=== PATIENT | female | born 1985 | race Caucasian/White ===

== ENCOUNTER 2016-07-13 08:02 | Inpatient (IN) | payer OTHER ==
[~2016-07-13] VITALS: Ht 167.6 cm; Wt 160.0 kg
[2016-07-13] VITALS (14 sets, daily range): BP systolic 102–154; BP diastolic 55–91; PULSE 97–125; RESP 18–24; TEMP 97.6–98; O2SAT 97–100
[~2016-07-13 08:02] MED LIST: CYCL5TAB PO; NAPR500 OR; Z.0.BCPILL PO
[2016-07-13] MEDS ORDERED: SODIUM CHLORIDE 0.9% FLUSH 5 ML FLUSH IVF PRN ×2 (08:15→14:30)
[2016-07-13] MEDS ORDERED: BIRTH CONTROL PO (08:30)
--- NOTE | 2016-07-13 09:02 | RADRPT ---
EXAM DATE/TIME: 07/13/2016 08:56 [facility] COMPARISON: No previous studies available for comparison. INDICATIONS : Syncope, Short of Breath, Chest Discomfort. MEDICAL HISTORY : None. SURGICAL HISTORY : None. ENCOUNTER: Initial ACUITY: 1 day PAIN SCORE: 2/10 LOCATION: Bilateral chest FINDINGS: A single view of the chest demonstrates the lungs to be symmetrically aerated without evidence of mas s, infiltrate or effusion. The cardiomediastinal contours are unremarkable. Osseous structures are intact. CONCLUSION: No acute disease. Jet King MD on July 13, 2016 at 9:01 Board Certified Radiologist. This report was verified electronically.
--- NOTE | 2016-07-13 09:09 | PD ---
HPI Chief Complaint: Syncope/Near-Syncope Time Seen by Provider: 08:08 Travel History International Travel<30 days: Yes Contact w/Intl Traveler<30days: Yes Name of Country Traveled to: [place] Traveled to known affect area: No History of Present Illness HPI 30-year-old female was brought into the emergency room with history of syncopal episode 2. Patient has not been feeling well this morning and had 2 syncopal episode. 911 was called and when they arrived patient was awake. When they went to resin remover her over to the stretcher she had a second syncopal episode in front of them. No history of seizures and there was no witnessed seizure either. Patient is otherwise a healthy person. She is on control pills and recently travel to [place] one month ago. For past 1 week she's been having some knee pain on the left leg. Upon asking patient says she is been short of breath. She was incontinent during the syncope and looks to be in moderate distress. She was pale and diaphoretic. No history of vomiting or diarrhea. Patient does not think she is since she's been on control pills for past 11 months. Patient is tachycardic in the ER. As per the paramedics she remained tachycardic en route with heart rate in 1 teens. Her blood pressure was within normal limits. Saturation was 94-95% on room air. She did appear tachypneic PFSH Past Medical History Narrative Medical List of her past medical history as reviewed from the nursing note. Diminished Hearing: No ?: Unknown LMP: 06/09/16 Past Surgical History Genitourinary Surgery: Yes (kidney) Social History Alcohol Use: Yes (occ) Tobacco Use: No Substance Use: No Allergies-Medications (Allergen,Severity, Reaction): Coded Allergies: Sulfa (Verified Allergy, Severe, Hives, 07/13/16) Comments List of allergies reviewed from the nursing note. Reported Meds & Prescriptions Reported Meds & Active Scripts Active Reported [ Control ] 1 Tab PO DAILY Narrative Medication List of her home medications reviewed from the nursing note. Review of Systems Except as stated in HPI: all other systems reviewed are Neg Physical Exam Narrative GENERAL: Awake, alert, morbidly obese, moderate to significant distress SKIN: Pale, cool and diaphoretic. Her clothes are wet from being incontinent HEAD: Atraumatic. Normocephalic. EYES: Pupils equal and round. No scleral icterus. No injection or drainage. ENT: No nasal bleeding or discharge. Mucous membranes pink and moist. NECK: Trachea midline. No JVD. CARDIOVASCULAR: Regular rate and rhythm. No murmur appreciated. RESPIRATORY: No accessory muscle use. Clear to auscultation. Breath sounds equal bilaterally. Tachypnea with moderate respiratory distress GASTROINTESTINAL: Abdomen soft, non-tender, nondistended. Hepatic and splenic margins not palpable. MUSCULOSKELETAL: No obvious deformities. No clubbing. No cyanosis. No edema. NEUROLOGICAL: Awake and alert. No obvious cranial nerve deficits. Motor grossly within normal limits. Normal speech. PSYCHIATRIC: Appropriate mood and affect; insight and judgment normal. Data Data Last Documented VS Vital Signs Date Time Temp Pulse Resp B/P Pulse Ox O2 Delivery O2 Flow Rate FiO2 07/13/16 08:29 20 98 Nasal Cannula 2 07/13/16 08:06 97.9 118 111/55 Orders I-Stat Creatinine (07/13/16 08:08) Complete Blood Count With Diff (07/13/16 08:08) Basic Metabolic Panel (Bmp) (07/13/16 08:08) B-Type Natriuretic Peptide (07/13/16 08:08) Act Partial Throm Time (Ptt) (07/13/16 08:08) Prothrombin Time / Inr (Pt) (07/13/16 08:08) Troponin I (07/13/16 08:08) Urinalysis - C+S If Indicated (07/13/16 08:08) Iv Access Insert/Monitor (07/13/16 08:08) Electrocardiogram (07/13/16 08:08) Ecg Monitoring (07/13/16 08:08) Oximetry (07/13/16 08:08) Oxygen Administration (07/13/16 08:08) Chest, Single Ap (07/13/16 08:08) Ct Pulmonary Angiogram (07/13/16 08:08) Sodium Chloride 0.9% Flush (Ns Flush) (07/13/16 08:15) Consult Vascular Access Team (07/13/16 ) Ed Urine Pregnancytest Poc (07/13/16 08:30) Beta Hcg (Quant/Titer) (07/13/16 08:30) Vascular Poc Ultrasound (07/13/16 ) Ondansetron Inj (Zofran Inj) (07/13/16 09:15) Sodium Chlor 0.9% 1000 Ml Inj (Ns 1000 M (07/13/16 09:30) Ct Brain W/O Iv Contrast(Rout) (07/13/16 ) Heparin Inj (Heparin Inj) (07/13/16 10:00) Heparin-D5w Inj (Heparin-D5w Inj) (07/13/16 10:00) Sodium Chlor 0.9% 1000 Ml Inj (Ns 1000 M (07/13/16 10:00) Iohexol 350 Inj (Omnipaque 350 Inj) (07/13/16 09:56) Us Leg Venous Doppler Bilat (07/13/16 ) Echo 2d Comp W/Dopp(Routine) (07/13/16 ) Magnesium (Mg) (07/13/16 10:25) Phosphorus (Po4) (07/13/16 10:25) Fibrinogen (07/13/16 10:25) Admit To Inpatient (07/13/16 ) Code Status (07/13/16 10:26) Vital Signs (Adult) MORALES.Q1H (07/13/16 10:26) Activity Bed Rest (07/13/16 10:26) ^ Elevate Head Of Bed (07/13/16 10:26) Sodium Chloride 0.9% Flush (Ns Flush) (07/13/16 10:30) Sodium Chloride 0.9% Flush (Ns Flush) (07/13/16 21:00) Acetaminophen (Tylenol) (07/13/16 10:30) Acetamin-Hydrocod 325-5 Mg ([place] 5-325 (07/13/16 10:30) Morphine Inj (Morphine Inj) (07/13/16 10:30) Pantoprazole Inj (Protonix Inj) (07/14/16 09:00) Ondansetron Inj (Zofran Inj) (07/13/16 10:30) Docusate Sodium (Colace) (07/13/16 21:00) Sennosides (Senokot) (07/13/16 10:30) Albuterol-Ipratropium Neb (Duoneb Neb) (07/13/16 10:30) Troponin I (07/13/16 15:00) Troponin I (07/13/16 21:00) Magnesium (Mg) (07/14/16 04:00) Lactic Acid (07/14/16 04:00) Hepatic Functional Panel (07/13/16 10:26) Resp Incentive Spirometry (07/13/16 ) Resp Oxygen Roman C Titrat 1-4 L (07/13/16 ) Shear Operator / Telemetry (07/13/16 10:26) ^ Initiate Protocol (07/13/16 10:) ^ Instruction (07/13/16 10:) [facility] Nursing Information (07/13/16 10:30) Chlorhexidine 2% Cloth (Chlorhexidine 2% (07/14/16 04:00) Chlorhexidine 2% Cloth (Chlorhexidine 2% (07/13/16 10:30) Mrsa Pcr Surveillance (07/13/16 10:26) ^ Medication Admin Instruction (07/13/16 10:26) ^ Notify Dr: Other (07/13/16 10:26) Potassium Chlor 40 Meq Premix (Kcl 40 Me (07/13/16 10:30) Potassium Chlor 20 Meq Premix (Kcl 20 Me (07/13/16 10:30) Potassium Cl 40 Meq/30 Ml Liq (Kcl 40 Me (07/13/16 10:30) Potassium Chlor 40 Meq Premix (Kcl 40 Me (07/13/16 10:30) Potassium Chlor 20 Meq Premix (Kcl 20 Me (07/13/16 10:30) Magnesium Sulfate Inj (Magnesium Sulfate (07/13/16 10:30) Magnesium Oxide (Mag-Ox) (07/13/16 10:30) Magnesium Sulfate Inj (Magnesium Sulfate (07/13/16 10:30) Potassium Phosphate (K-Phos) (07/13/16 10:30) Sodium Phosphate Inj (Sodium Phosphate I (07/13/16 10:30) Potassium Cl 40 Meq/30 Ml Liq (Kcl 40 Me (07/13/16 10:30) Potassium Phosphate (K-Phos) (07/13/16 10:30) Potassium Phosphate Inj (Potassium Phosp (07/13/16 10:30) Bedside Glucose MORALES.AC&HS (07/13/16 10:26) ^ Blood Glucose Goal (Criteria (07/13/16 10:26) ^ Hypoglycemia 51 - 69 Mg/Dl (07/13/16 10:26) ^ Hypoglycemia 50 Mg/Dl Or < (07/13/16 10:26) ^ Notify Dr: Other (07/13/16 10:26) Dextrose 50% In [place] (Vial) Inj (D50w (Vi (07/13/16 10:30) Glucagon Inj (Glucagon Inj) (07/13/16 10:30) Insulin Human Reg Supp Scale (Novolin R (07/13/16 11:00) Inpatient Certification (07/13/16 ) Labs Laboratory Tests Test 07/13/16 08:51 White Blood Count 16.1 TH/MM3 Red Blood Count 4.95 MIL/MM3 Hemoglobin 13.8 GM/DL Hematocrit 41.4 % Mean Corpuscular Volume 83.7 FL Mean Corpuscular Hemoglobin 27.8 PG Mean Corpuscular Hemoglobin 33.2 % Concent Red Cell Distribution Width 14.3 % Platelet Count 183 TH/MM3 Mean Platelet Volume 8.7 FL Neutrophils (%) (Auto) 81.0 % Lymphocytes (%) (Auto) 12.8 % Monocytes (%) (Auto) 3.5 % Eosinophils (%) (Auto) 2.4 % Basophils (%) (Auto) 0.3 % Neutrophils # (Auto) 13.0 TH/MM3 Lymphocytes # (Auto) 2.1 TH/MM3 Monocytes # (Auto) 0.6 TH/MM3 Eosinophils # (Auto) 0.4 TH/MM3 Basophils # (Auto) 0.1 TH/MM3 CBC Comment DIFF FINAL Differential Comment Prothrombin Time 11.5 SEC Prothromb Time International 1.0 RATIO Ratio Activated Partial 24.0 SEC Thromboplast Time Fibrinogen 230 mg/dL Sodium Level 140 MEQ/L Potassium Level 3.4 MEQ/L Chloride Level 108 MEQ/L Carbon Dioxide Level 19.8 MEQ/L Anion Gap 12 MEQ/L Blood Urea Nitrogen 9 MG/DL Creatinine 1.03 MG/DL Bedside Creatinine 0.7 MG/DL Estimat Glomerular Filtration 64 ML/MIN Rate Random Glucose 198 MG/DL Calcium Level 8.4 MG/DL Phosphorus Level 2.6 MG/DL Magnesium Level 1.8 MG/DL Troponin I 0.78 NG/ML B-Type Natriuretic Peptide 32 PG/ML Lipase 104 U/L Human Chorionic Gonadotropin, LESS THAN 1 Quant MIU/ML MDM Medical Decision Making Medical Screen Exam Complete: Yes Emergency Medical Condition: Yes Medical Record Reviewed: Yes Interpretation(s) Twelve-lead EKG was reviewed by me. Normal sinus rhythm, normal axis, tachycardia, nonspecific ST-T wave changes, S1 every 3 T3 suggestive off possible PE. Heart rate of 119 bpm. Differential Diagnosis Pulmonary embolism, ectopic , pneumonia, sepsis, intracranial bleed Narrative Course 9:32 AM blood test results are back. Patient has leukocytosis. She is slightly acidotic with bicarbonate of 18. Beta hCG Quant is negative. Chest x- ray was within normal limits. Patient has been taken over to CT scanner and getting her head CT and pulmonary angiogram done. I have ordered 1 L of IV fluid bolus and her. It was challenging to find a peripheral IV including with the ultrasound by me. I ordered a vascular access which they were able to put 1. She definitely will require admission. Patient has the right set up for PE and my suspicion is very high given her clinical presentation, tachycardia, tachypnea etc. I spoke with her parents regarding this who were in the room and they agreed. Patient will require admission regardless. 9:46 AM patient has bilateral large PEs. I'll start her on heparin bolus and drip. I would recommend her admission into the ICU for now. Patient does appear to be hemodynamically guarded. Awaiting for the locator to call back. I was also called just now regarding patient's troponin is a critical value which was 0.78. In my opinion that is from the large PE straining the heart. Critical Care Narrative Aggregate critical care time was 60 minutes. Time to perform other separately billable procedures was not included in the critical care time. My time did not include minutes spent treating any other patients simultaneously or on activities that did not directly contribute to the patient's treatment. The services I provided to this patient were to treat and/or prevent clinically significant deterioration that could result in: Large multiple bilateral PE, respiratory distress, elevated troponin, hemodynamically guarded, fluid resuscitation, heparin bolus and drip I provided critical care services requiring my management, as noted below: Chart data review, documentation time, medication orders and management, vital sign assessments/reviewing monitor data, ordering and reviewing lab tests, ordering and interpreting/reviewing x-rays and diagnostic studies, care of the patient and discussion of the patient with the admitting physicians. Procedures EKG Prior to Arrival: No Physician Communication Physician Communication Dr. Leiva Diagnosis Primary Impression: Pulmonary embolism Qualified Code: I26.99 - Other acute pulmonary embolism without acute cor pulmonale Additional Impressions: Syncope Qualified Code: R55 - Syncope, unspecified syncope type Respiratory distress Metabolic acidosis Elevated troponin I level Admitting Information Admitting Physician Requests: it Flakito Christopher MD Jul 13, 2016 09:09
[2016-07-13 09:11] LABS: BASOPHIL # 0.1 TH/MM3 (0-0.2); BASOPHIL % 0.3 % (0.0-2.0); EOSINOPHIL # 0.4 TH/MM3 (0-0.4); EOSINOPHIL % 2.4 % (0.0-4.0); HEMATOCRIT 41.4 % (35.0-46.0); HEMO FLAGS DIFF FINAL; LYMPH % 12.8 % (9.0-44.0); LYMPHOCYTE # 2.1 TH/MM3 (1.0-4.8); MEAN CELL VOLUME 83.7 FL (80.0-100.0); MEAN CORPUSCULAR HEMOGLOBIN 27.8 PG (27.0-34.0); MEAN CORPUSCULAR HGB CONC 33.2 % (32.0-36.0); MONO % 3.5 % (0.0-8.0); PLATELET COUNT 183 TH/MM3 (150-450); RED BLOOD COUNT 4.95 MIL/MM3 (4.00-5.30); RED CELL DISTRIBUTION WIDTH 14.3 % (11.6-17.2); WHITE BLOOD COUNT 16.1 TH/MM3 (4.0-11.0)
[2016-07-13 09:15] LABS: PROTHROMBIN TIME - PATIENT 11.5 SEC (9.8-11.6)
[2016-07-13] MEDS ORDERED: ONDANSETRON HCL 4 MG/2 ML VIAL IV PUSH ONE (09:15)
[2016-07-13 09:21] LABS: BICARBONATE 19.8 MEQ/L (21.0-32.0); POTASSIUM 3.4 MEQ/L (3.5-5.1)
[2016-07-13 09:26] LABS: BETA HCG QUANT LESS THAN 1 MIU/ML (0-5)
[2016-07-13] MEDS ORDERED: SODIUM CHLOR 0.9% 1000 ML INJ 1,000 ML IV ONE ×2 (09:30→10:00)
[2016-07-13] MEDS ORDERED: IOHEXOL 350 MG/ML 10 ML VIAL (for RAD DIAG) IV ONE (09:56)
--- NOTE | 2016-07-13 09:56 | RADRPT ---
EXAM DATE/TIME: 07/13/2016 09:29 [facility] COMPARISON: No previous studies available for comparison. INDICATIONS : Syncopal episode. RADIATION DOSE: 56.35 CTDIvol (mGy) MEDICAL HISTORY : None SURGICAL HISTORY : None. ENCOUNTER: Initial ACUITY: 1 day PAIN SCALE: 5/10 LOCATION: Bilateral chest TECHNIQUE: Multiple contiguous axial images were obtained of the head. Using automated exposure control and adj ustment of the mA and/or kV according to patient size, radiation dose was kept as low as reasonably a chievable to obtain optimal diagnostic quality images. FINDINGS: CEREBRUM: The ventricles are normal for age. No evidence of midline shift, mass lesion, hemorrhage or acute in farction. No extra-axial fluid collections are seen. POSTERIOR FOSSA: The cerebellum and brainstem are intact. The 4th ventricle is midline. The cerebellopontine angle i s unremarkable. EXTRACRANIAL: The visualized portion of the orbits is intact. SKULL: The calvaria is intact. No evidence of skull fracture. CONCLUSION: No acute intracranial disease. Jet King MD on July 13, 2016 at 9:53 Board Certified Radiologist. This report was verified electronically.
--- NOTE | 2016-07-13 09:58 | RADRPT ---
EXAM DATE/TIME: 07/13/2016 09:25 [facility] COMPARISON: No previous studies available for comparison. INDICATIONS : Shortness of breath and syncopal episode; evalute for embolism. IV CONTRAST: 75 cc Omnipaque 350 (iohexol) IV RADIATION DOSE: 23.49 CTDIvol (mGy) MEDICAL HISTORY : None SURGICAL HISTORY : None. ENCOUNTER: Initial ACUITY: 1 day PAIN SCALE: 5/10 LOCATION: Bilateral chest TECHNIQUE: Volumetric scanning of the chest was performed using a pulmonary embolism protocol MIP images were re constructed. Using automated exposure control and adjustment of the mA and/or kV according to patien t size, radiation dose was kept as low as reasonably achievable to obtain optimal diagnostic quality images. FINDINGS: PULMONARY ARTERIES: There are filling defects seen throughout the upper lobe lower lobe and right middle lobe images. The re is also filling defects in the lingular branches. This is consistent with multifocal extensive zoe ateral pulmonary emboli. Pulmonary arteries are normal in size. LUNGS: There is no consolidation or pneumothorax . No concerning pulmonary nodule is visualized. PLEURAE: There is no pleural thickening or pleural effusion. MEDIASTINUM: There is good visualization of the great vessels of the middle mediastinum. No evidence of mediastin al or hilar adenopathy/mass. MUSCULOSKELETAL: Within normal limits for patient age. MISCELLANEOUS: The visualized upper abdominal organs demonstrate no acute abnormality. CONCLUSION: Extensive bilateral pulmonary emboli. Jet King MD on July 13, 2016 at 9:55 Board Certified Radiologist. This report was verified electronically.
[2016-07-13] MEDS ORDERED: HEPARIN SODIUM - IV 10,000 UNITS/10 ML VIAL IV ONE (10:00)
[2016-07-13] MEDS ORDERED: HEPARIN-D5W INJ 250 ML IV SCH ×4 (10:00→17:15)
[2016-07-13] MEDS ORDERED: RESP: ALBUTEROL 2.5 MG/IPRATROPIUM 0.5 MG NEB (PRN) INH (10:30)
[2016-07-13] MEDS ORDERED: POTASSIUM PHOSPHATE MONOBASIC 500 MG TAB PO/TUBE PRN (10:30)
[2016-07-13] MEDS ORDERED: POTASSIUM PHOSPHATE INJ 30 MMOL in SODIUM CHLOR 0.9% 250 ML INJ 250 ML IV PRN (10:30)
[2016-07-13] MEDS ORDERED: SENNOSIDES 8.6 MG TAB PO PRN (10:30)
[2016-07-13] MEDS ORDERED: SODIUM PHOSPHATE INJ 30 MMOL in SODIUM CHLOR 0.9% 250 ML INJ 240 ML IV PRN (10:30)
[2016-07-13] MEDS ORDERED: MAGNESIUM OXIDE 400 MG TAB PO PRN (10:30)
[2016-07-13] MEDS ORDERED: POTASSIUM CHLOR 40 MEQ PREMIX 100 ML IV PRN ×2 (10:30)
[2016-07-13] MEDS ORDERED: MAGNESIUM SULFATE INJ 4 GM in SODIUM CHLORIDE 0.9% INJ 92 ML IV PRN (10:30)
[2016-07-13] MEDS ORDERED: GLUCAGON 1 MG/ML VIAL OTHER PRN (10:30)
[2016-07-13] MEDS ORDERED: SODIUM CHLORIDE 0.9% FLUSH 5 ML FLUSH IV FLUSH PRN (10:30)
[2016-07-13] MEDS ORDERED: POTASSIUM PHOSPHATE MONOBASIC 500 MG TAB PO PRN (10:30)
[2016-07-13] MEDS ORDERED: MISCELLANEOUS NURSING INFORMATION XX SCH (10:30)
[2016-07-13] MEDS ORDERED: POTASSIUM CL 40 MEQ/30 ML LIQ UDC PO/TUBE PRN ×2 (10:30)
[2016-07-13] MEDS ORDERED: DEXTROSE 50% IN WATER 50 ML VIAL(D50) IV PUSH PRN (10:30)
[2016-07-13] MEDS ORDERED: MORPHINE SULFATE 4 MG/ML INJ IV PRN (10:30)
[2016-07-13] MEDS ORDERED: MAGNESIUM SULFATE INJ 2 GM in SODIUM CHLORIDE 0.9% INJ 96 ML IV PRN (10:30)
[2016-07-13] MEDS ORDERED: POTASSIUM CHLOR 20 MEQ PREMIX 100 ML IV PRN ×2 (10:30)
[2016-07-13] MEDS ORDERED: CHLORHEXIDINE GLUCONATE 2 % 1 PACK (2 CLOTHS) TOP PRN (10:30)
[2016-07-13] MEDS ORDERED: ACETAMINOPHEN 325 MG TAB PO PRN (10:30)
[2016-07-13] MEDS: INSULIN NovoLIN REGULAR SUPPLEMENTAL SCALE SQ SCH ×3 (11:00→20:12)
--- NOTE | 2016-07-13 11:04 | HHI.HP ---
[facility] Service Critical Care Medicine Primary Care Physician Non-Staff Admission Diagnosis Bilateral pulmonary embolism Diagnosis: (1) Elevated troponin I level Diagnosis: Principal (2) Syncope Diagnosis: Principal (3) Respiratory distress Diagnosis: Principal (4) Leukocytosis Diagnosis: Principal (5) Hypopotassemia Diagnosis: Principal (6) SIRS without infection with organ dysfunction Diagnosis: Principal (7) Morbid obesity with BMI of 50.0-59.9, adult Diagnosis: Principal (8) Congenital abnormality of ureter Diagnosis: Principal (9) Acute pulmonary embolism Diagnosis: Principal Chief Complaint: Shortness of breath/syncope 2 Travel History International Travel<30 Days: Yes Contact w/Intl Traveler <30 Da: Yes Name of Country Traveled to: [place] Traveled to Known Affected Are: No Sepsis Criteria SIRS Criteria (2 or more): Heart rate over 90, WBC > 81090, < 4000 or > 10% bands Criteria Outcome: Meets SIRS criteria History of Present Illness 30-year-old male. Date of admission 07/13/2016. Past medical history includes morbid obesity and congenital ureteral abnormality. She is on contro; pills. [facility] with the following history. She recently traveled to the [place] to return approximately one month ago. 2 weeks ago, patient noticed pain behind her right calf that "went away". Today, patient had a syncopal episode. She did not strike her head. 911 was called and when they arrive to patient was awakened they went over to the stretcher and she had a second syncopal episode in front of them. She was pale and diaphoretic. Sinus tachycardiac and otherwise blood pressure within normal limits EKG revealed sinus tachycardia with an S1, Q3 T3 medication. Chest x-ray revealed no acute findings. CT head negative for acute cranial findings. CTA chest revealed extensive bilateral pulmonary embolism without saddle emboli. Patient was started on heparin drip by the ED staff. She has leukocytosis 16, 000, potassium 3.4. Blood sugar 198. Urine pending. Troponin 0.78. Interim: Patient appears more comfortable/ in no acute distress however in sinus tachycardia. Review of Systems Constitutional: COMPLAINS OF: Fatigue, Dizziness, DENIES: Fever, Weight gain, Weight loss Endocrine: DENIES: Abnorml menstrual pattern Eyes: DENIES: Blurred vision, Double Vision Ears, nose, mouth, throat: DENIES: Tinnitus, Epistaxis Respiratory: COMPLAINS OF: Shortness of breath, DENIES: Apneas, Sputum production Cardiovascular: COMPLAINS OF: Chest pain, Palpitations, Syncope, DENIES: Dyspnea on Exertion, Lower Extremity Edema, Claudication Gastrointestinal: DENIES: Abdominal pain Genitourinary: DENIES: Urinary frequency, Urinary incontinence Musculoskeletal: DENIES: Joint pain Integumentary: DENIES: Pruritus, Rash Hematologic/lymphatic: DENIES: Bruising Immunologic/allergic: DENIES: Eczema, Urticaria Neurologic: DENIES: Headache Psychiatric: COMPLAINS OF: Anxiety, DENIES: Confusion, Mood changes Past Family Social History Allergies: Coded Allergies: Sulfa (Verified Allergy, Severe, Hives, 07/13/16) Past Medical History Morbid obesity Congenital ureter abnormality Past Surgical History IV J Reported Medications None Active Ordered Medications Reviewed in EMR Family History Mother with History of blood clots after surgery. Negative hypercoagulable workup with Dr. Kraus Father history of ablation Social History Social alcohol. Denies nicotine or IV drug use. Physical Exam Vital Signs Vital Signs Date Time Temp Pulse Resp B/P Pulse Ox O2 Delivery O2 Flow Rate FiO2 07/13/16 08:29 20 98 Nasal Cannula 2 07/13/16 08:29 98 Nasal Cannula 2 07/13/16 08:06 97.9 118 20 111/55 97 Physical Exam GENERAL: 30-year-old female, resting in bed in no acute distress nasal cannula SKIN: Warm and dry. HEAD: Atraumatic. Normocephalic. EYES: Pupils equal and round about 5 mm bilaterally and minimally reactive. No scleral icterus. No injection or drainage. ENT: No nasal bleeding or discharge. Mucous membranes pink and moist. NECK: Trachea midline. No JVD. No carotid bruit. CARDIOVASCULAR: Tachycardic, RR. S1, S2. No S4. Without murmur RESPIRATORY: No accessory muscle use. Clear to auscultation. Breath sounds equal bilaterally. GASTROINTESTINAL: Abdomen soft, non-tender, obese. Hypoactive bowel sounds are appreciated. MUSCULOSKELETAL: Extremities with nonpitting peripheral edema. Tattoo on left dorsal aspect of foot. Positive Homans sign right calf NEUROLOGICAL: Awake and alert. No obvious cranial nerve deficits. Motor grossly within normal limits. Five out of 5 muscle strength in the arms and legs. Normal speech. PSYCHIATRIC: Appropriate mood and affect; insight and judgment normal. Laboratory Laboratory Tests Test 07/13/16 08:51 White Blood Count 16.1 Red Blood Count 4.95 Hemoglobin 13.8 Hematocrit 41.4 Mean Corpuscular Volume 83.7 Mean Corpuscular Hemoglobin 27.8 Mean Corpuscular Hemoglobin 33.2 Concent Red Cell Distribution Width 14.3 Platelet Count 183 Mean Platelet Volume 8.7 Neutrophils (%) (Auto) 81.0 Lymphocytes (%) (Auto) 12.8 Monocytes (%) (Auto) 3.5 Eosinophils (%) (Auto) 2.4 Basophils (%) (Auto) 0.3 Neutrophils # (Auto) 13.0 Lymphocytes # (Auto) 2.1 Monocytes # (Auto) 0.6 Eosinophils # (Auto) 0.4 Basophils # (Auto) 0.1 CBC Comment DIFF FINAL Differential Comment Prothrombin Time 11.5 Prothromb Time International 1.0 Ratio Activated Partial 24.0 Thromboplast Time Sodium Level 140 Potassium Level 3.4 Chloride Level 108 Carbon Dioxide Level 19.8 Anion Gap 12 Blood Urea Nitrogen 9 Creatinine 1.03 Bedside Creatinine 0.7 Estimat Glomerular Filtration 64 Rate Random Glucose 198 Calcium Level 8.4 Troponin I 0.78 B-Type Natriuretic Peptide 32 Human Chorionic Gonadotropin, LESS THAN 1 Quant Result Diagram: 07/13/16 0851 07/13/16 0851 Imaging Last Impressions Chest X-Ray 07/13/16 0808 Signed Impressions: Service Date/Time: Wednesday, July 13, 2016 08:56 - CONCLUSION: No acute disease. Jet King MD CT Angiography 07/13/16 0808 Signed Impressions: Service Date/Time: Wednesday, July 13, 2016 09:25 - CONCLUSION: Extensive bilateral pulmonary emboli. Jet King MD Head CT 07/13/16 0000 Signed Impressions: Service Date/Time: Wednesday, July 13, 2016 09:29 - CONCLUSION: No acute intracranial disease. Jet King MD Assessment and Plan Assessment and Plan Neuro/Psych: Syncope - likely cardiogenic secondary to pulmonary embolism Acetaminophen for fever [place]/morphine for pain management Carotid Dopplers ordered for completeness of workup CV: Sinus tachycardia Elevated troponin - likely secondary to sinus tachycardia/demand ischemia from PE Likely secondary to pulmonary embolism. Will not treat the present time. See bolus of 1 Liter normal saline ED. Currently on normal saline at 84 cc an hour. Currently not requiring vasopressors and/or antihypertensives. Serial troponins. Check lipid panel in a.m. Resp: Bilateral submassive pulmonary embolism CT angiogram 07/13 revealed bilateral pulmonary embolism involving all lobes. No saddle pulmonary emboli. EKG revealed S1 Q 3 T3 motif with sinus tachycardia Heparin drip initiated. PE protocol 2-D echocardiogram/bilateral lobes and ultrasounds pending Currently hemodynamic stable. With sinus tachycardia if 2-D echocardiogram reveals RV strain will contact IR for possible alteplase/catheter directed GI: ADA diet Protonix for GI prophylaxis Colace/as needed Senokot for bowel regimen : History of congenital ureteral abnormality Keith if indicated for accurate I's nose and critical patient Endo: Hyper-glycemia - metabolic syndrome Sliding-scale insulin with Accu-Cheks before meals/at bedtime maintain euglycemia. Low regimen. Check hemoglobin and see Renal: Creatinine currently within normal limits Accurate I/Os Monitor urine output Heme: Leukocytosis Likely leukemoid type reaction. See below for infectious workup Follow-up CBC/coags in AM. Monitor trends Hypercoagulable workup ordered. Note that protein C/S and anti-thrombin 3 will be falsely low due to ongoing thrombosis. It may also identify reactive non-causative antiphospholipid antibodies ID: Monitor for infection. UA ordered Chest x-ray revealed no acute processes FEN: Hypokalemia Replace per ICU electrolyte protocol. Recheck in a.m. 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 Hcg 1 Access - Utilize peripheral IV. Place second peripheral IV with vascular access. Central line if indicated Prophylaxis - GI - Protonix - DVT - heparin drip Critical Care: The total critical care time was 55 minutes. Time to perform other separately billable procedures was not included in the critical care time. Echocardiogram reviewed. Moderate to severe RV dilation with Glez sign. Elevated pulmonary pressures. Patient tachycardic at 122 with systolic blood pressure of 102. Discussed with Dr. Ly/IR regarding possible intervention on his behalf. Due to the bilateral nature the pulmonary embolism , he recommended Place central line and start alteplase at 2 mg an hour 4 hours followed by 1 mg an hour for 20 hours. Heparin drip at 500 units an hour. Every 6 hours labs including CBC, PTT and fibrinogen. See orders. Afterwards. Start heparin drip per PE protocol dosage. Dr. Ly willing to come in if patient emergently needs intervention. Code Status Full code Discussed Condition With Dr. Christopher. Patient. Mother and father. Care plan discussed all questions answered. Problem Qualifiers (1) Syncope: Qualified Code: R55 - Syncope, unspecified syncope type (2) Leukocytosis: Qualified Code: D72.829 - Leukocytosis, unspecified type (3) Acute pulmonary embolism: Qualified Code: I26.09 - Other acute pulmonary embolism with acute cor pulmonale Mike Leiva MD Jul 13, 2016 11:04
[2016-07-13] MEDS ORDERED: METOCLOPRAMIDE HCL 10 MG/2 ML VIAL IV PUSH PRN (11:45)
[2016-07-13] MEDS ORDERED: PROMETHAZINE HCL 25 MG TAB PO PRN (11:45)
[2016-07-13 12:14] LABS: MAGNESIUM 1.8 MG/DL (1.5-2.5)
--- NOTE | 2016-07-13 12:33 | EC ---
Study Study Date:07/13/2016 STUDY CONCLUSIONS SUMMARY - Left ventricle: The cavity size was normal. Wall thickness was normal. Systolic function was normal. The estimated ejection fraction was in the range of 55% to 60%. Wall motion was normal; there were no regional wall motion abnormalities. - Ventricular septum: The contour showed systolic flattening. These changes are consistent with RV pressure overload. - Right ventricle: The cavity size was moderately dilated. Wall thickness was normal. Systolic function was moderately to severely reduced. Apical wall motion was spared; Glez's sign, consistent with pulmonary embolus. - Tricuspid valve: Mild regurgitation. - Pulmonary arteries: Systolic pressure was severely increased. PA peak pressure: 70mm Hg (S). If LV function is below 40, please consider prescribing an ACEI or ARB or document rationale for non-use. PROCEDURE DATA STUDY STATUS: Elective. Procedure: Transthoracic echocardiography. Image quality was good. Scanning was performed from the parasternal, apical, and subcostal acoustic windows. Study completion: The patient tolerated the procedure well. Transthoracic echocardiography. M-mode, complete 2D, complete spectral Doppler, and color Doppler. Patient status: Inpatient. CARDIAC ANATOMY LEFT VENTRICLE: The cavity size was normal. Wall thickness was normal. Systolic function was normal. The estimated ejection fraction was in the range of 55% to 60%. Wall motion was normal; there were no regional wall motion abnormalities. AORTIC VALVE: Trileaflet; normal thickness leaflets. Doppler: Transvalvular velocity was within the normal range. There was no stenosis. No regurgitation. AORTA: Aortic root: The aortic root was normal in size. MITRAL VALVE: Structurally normal valve. Doppler: Transvalvular velocity was within the normal range. There was no evidence for stenosis. No regurgitation. LEFT ATRIUM: The atrium was normal in size. RIGHT VENTRICLE: The cavity size was moderately dilated. Wall thickness was normal. Systolic function was moderately to severely reduced. VENTRICULAR SEPTUM: The contour showed systolic flattening. These changes are consistent with RV pressure overload. PULMONIC VALVE: Doppler: Transvalvular velocity was within the normal range. There was no evidence for stenosis. No regurgitation. TRICUSPID VALVE: Structurally normal valve. Doppler: Transvalvular velocity was within the normal range. Mild regurgitation. PULMONARY ARTERY: The main pulmonary artery was normal-sized. Systolic pressure was severely increased. RIGHT ATRIUM: The atrium was normal in size. PERICARDIUM: There was no pericardial effusion. SYSTEMIC VEINS: Inferior vena cava: The vessel was normal in size. BASIC MEASUREMENTS ADULT Normal Left ventricle LV internal dimension, ED, chordal level, *41.4 mm 43-52 PLAX LV internal dimension, ES, chordal level, 30.6 mm 23-38 PLAX Fractional shortening, chordal level, PLAX *26 % >29 LV posterior wall thickness, ED 7.8 mm IVS/LVPW ratio, ED *1.36 <1.3 Ventricular septum Septal thickness, ED 10.6 mm Aortic valve Leaflet separation 19 mm 15-26 Left atrium Anterior-posterior dimension 31 mm Right ventricle RV internal dimension, ED, PLAX 37 mm 19-38 BASIC MEASUREMENTS ADULT Normal Aortic valve Leaflet separation 19 mm 15-26 Aorta Root diameter, ED 31 mm 20-37 Left atrium Anterior-posterior dimension, ES 31 mm 19-40 LA/aortic root ratio 1 DOPPLER MEASUREMENTS ADULT Normal Main pulmonary artery Pressure, S *70 mm Hg =30 Mitral valve Peak E-wave velocity 59.3 cm/s Peak A-wave velocity 59.8 cm/s Peak E/A ratio 1 Tricuspid valve Regurgitant peak velocity 327 cm/s Peak RV-RA gradient, S 43 mm Hg Maximal regurgitant velocity 327 cm/s LEGEND: Mean values are shown as u=mean value. Asterisk (*) victoria values outside specified normal range. Prepared and signed by Yan Lake [id number]
--- NOTE | 2016-07-13 13:01 | RADRPT ---
EXAM DATE/TIME: 07/13/2016 11:44 [facility] COMPARISON: No previous studies available for comparison. INDICATIONS : Pulmonary emboli, leg pain. MEDICAL HISTORY : Syncope. Shortness of breath. Leg pain. SURGICAL HISTORY : Kidney surgery. ENCOUNTER: Initial ACUITY: 1 day PAIN SCORE: 4/10 LOCATION: Bilateral legs. TECHNIQUE: Venous ultrasound of the left and right leg was performed from the inguinal ligament to the proximal calf. Real-time, color Doppler and spectral tracing, compression and augmentation techniques were us ed. FINDINGS: RIGHT LEG: There is nonocclusive thrombus in the right superficial femoral vein and posterior tibial vein. Commo n femoral vein and popliteal veins patent. LEFT LEG: There is nonocclusive thrombus within the superficial femoral vein and posterior tibial veins. Commo n femoral vein and popliteal veins are patent. CONCLUSION: Nonocclusive thrombosis in both legs. Jet King MD on July 13, 2016 at 12:57 Board Certified Radiologist. This report was verified electronically.
--- NOTE | 2016-07-13 13:03 | EKG ---
Date Performed: 07/13/2016 Time Performed: 08:32:58 PTAGE: 30 years EKG: SINUS TACHYCARDIA NONSPECIFIC ST & T-WAVE ABNORMALITY ABNORMAL ECG NO PREVIOUS TRACING DOCTOR: Yan Lake Interpretating Date/Time 07/13/2016 12:59:11
[2016-07-13] MEDS: SODIUM CHLOR 0.9% 1000 ML INJ 1,000 ML IV SCH ×2 (13:06→19:49)
--- NOTE | 2016-07-13 13:13 | RADRPT ---
EXAM DATE/TIME: 07/13/2016 12:16 [facility] COMPARISON: No previous studies available for comparison. INDICATIONS : Syncope. MEDICAL HISTORY : Syncope. Shortness of breath. Leg pain. SURGICAL HISTORY : Kidney surgery. ENCOUNTER: Initial ACUITY: 1 day PAIN SCORE: 0/10 LOCATION: Bilateral neck PEAK SYSTOLIC VELOCITIES (cm/sec): ICA/CCA RATIO: Right: 1.1 Left: 0.7 ICA: Right: 111 Left: 81 CCA: Right: 98 Left: 112 ECA: Right: 81 Left: 103 VERTEBRAL: Right: 72 antegrade Left: 72 antegrade Elevated flow velocities and ICA/CCA ratios have been found to correlate with increased degrees of vessel stenosis, calculated as percentage of diameter relative to a normal segment of distal ICA/CCA FINDINGS: RIGHT CAROTID: No significant stenosis is visualized. The waveforms are within normal limits. LEFT CAROTID: No significant stenosis is visualized. The waveforms are within normal limits. VERTEBRAL ARTERIES: Antegrade flow is seen in both vertebral arteries. MISCELLANEOUS: None. CONCLUSION: No hemodynamically significant stenosis in either carotid artery. Jet King MD on July 13, 2016 at 13:11 Board Certified Radiologist. This report was verified electronically.
[2016-07-13] MEDS ORDERED: HALOPERIDOL LACTATE 5 MG/ML AMP ONE (13:54)
[2016-07-13] MEDS ORDERED: CATHFLO ACTIVASE INJ 10 MG in SODIUM CHLORID 0.9% 500 ML INJ 500 ML IV SCH ×6 (14:00→17:15)
[2016-07-13] MEDS: SODIUM CHLORIDE 0.9% FLUSH 5 ML FLUSH IVF SCH (14:30)
--- NOTE | 2016-07-13 14:32 | PD.PROCEDR ---
Central Line Procedure REASON FOR PROCEDURE Central venous access PROCEDURE PERFORMED Central line placement: Left IJ CVL CONSENT Informed consent for procedure was obtained. The risks and benefits of the procedure were discussed to include but limited to bleeding, clot formation, infection, and even . ANESTHESIA Local injection of 1% Lidocaine DESCRIPTION OF THE PROCEDURE The patient was placed in supine, mild Trendelenburg position. The area was exposed and cleansed with ChloraPrep, times two. Large sterile drape was used to cover the patient, with the site exposed, under sterile conditions including cap, face mask, sterile gown, and sterile gloves. On single attempt, the introducer needle was inserted with negative pressure in syringe and venous flash was obtained. The guide wire was then advanced without any restriction and the needle was removed. The dilator was used without any complications. Using Seldinger technique the triple-lumen catheter was advanced over the guide wire to a depth of 20 centimeters. The guide wire was removed. All ports were aspirated with dark venous blood return and flushed easily with sterile saline. All ports were capped. Antibiotic disc was placed around central line at puncture site. The central line was secured to the skin with two interrupted 2.0 silk sutures. The area was bandaged with sterile see-through central line bandage. RADIOLOGICAL DATA Ultrasound guidance was used to locate left internal jugular vein. Doppler/ color flow was used to confirm venous flow. COMPLICATIONS: No apparent complications ESTIMATED BLOOD LOSS: Less than 1 cc. Mike Leiva MD Jul 13, 2016 14:32
[2016-07-13] MEDS ORDERED: PROMETHAZINE INJ 25 MG/ML VIAL IV-CENTRAL PRN (14:45)
--- NOTE | 2016-07-13 14:57 | RADRPT ---
EXAM DATE/TIME: 07/13/2016 14:41 [facility] COMPARISON: No previous studies available for comparison. INDICATIONS : Central Line Placement, Short of Breath, Chest Discomfort. MEDICAL HISTORY : None. SURGICAL HISTORY : None. ENCOUNTER: Initial ACUITY: 1 day PAIN SCORE: 2/10 LOCATION: Bilateral chest FINDINGS: A single view of the chest demonstrates the lungs to be symmetrically aerated without evidence of mas s, infiltrate or effusion. The cardiomediastinal contours are unremarkable. Left jugular central li ne with tip in the cavoatrial junction. Osseous structures are intact. CONCLUSION: No acute disease. Adequate placement of left jugular central line. No pneumothorax Jet King MD on July 13, 2016 at 14:55 Board Certified Radiologist. This report was verified electronically.
[2016-07-13] MEDS ORDERED: HALOPERIDOL LACTATE 5 MG/ML AMP IV PUSH ONE (16:00)
[2016-07-13 17:04] LABS: BACTERIA, URINE OCC /hpf; BLOOD, URINE MOD (NEG); GLUCOSE,URINE NEG (NEG); KETONE, URINE TRACE mg/dL (NEG); NITRITE,URINE NEG (NEG); SQUAMOUS EPITHELIAL CELL URINE 2 /hpf (0-5); URINE COLOR YELLOW (YELLW/STRAW)
[2016-07-13 17:11] LABS: COMMENT (UR) CULTURE INDICATED; CULTURE IF INDICATED CULTURE INDICATED
[2016-07-13] MEDS ORDERED: LABETALOL HCL 100 MG/20 ML VIAL IV PUSH PRN (18:15)
[2016-07-13] MEDS ORDERED: NITROGLYCERIN 2% OINT 1 GM PACKET TOPICAL PRN (18:15)
[2016-07-13] MEDS ORDERED: hydrALAZINE HCL 20 MG/ML VIAL IV PUSH PRN (18:15)
[2016-07-13] MEDS: ONDANSETRON HCL 4 MG/2 ML VIAL IV PRN (19:49)
[2016-07-13] MEDS: SODIUM CHLORIDE 0.9% FLUSH 5 ML FLUSH IV FLUSH SCH (19:50)
[2016-07-13] MEDS: DOCUSATE SODIUM 100 MG CAP PO SCH (19:50)
[2016-07-13] MEDS: CATHFLO ACTIVASE INJ 10 MG in SODIUM CHLORID 0.9% 500 ML INJ 500 ML IV SCH (19:54)
[2016-07-13 20:16] LABS: AUTOMATED NEUTROPHIL # 7.7 TH/MM3 (1.8-7.7); BASOPHIL % 0.3 % (0.0-2.0); HEMATOCRIT 39.9 % (35.0-46.0); HEMO FLAGS DIFF FINAL; MEAN CELL VOLUME 83.8 FL (80.0-100.0); MEAN CORPUSCULAR HEMOGLOBIN 27.9 PG (27.0-34.0); MEAN CORPUSCULAR HGB CONC 33.3 % (32.0-36.0); MONO % 5.9 % (0.0-8.0); NEUT % 82.8 % (16.0-70.0); PLATELET COUNT 172 TH/MM3 (150-450); RED BLOOD COUNT 4.76 MIL/MM3 (4.00-5.30); RED CELL DISTRIBUTION WIDTH 14.2 % (11.6-17.2); WHITE BLOOD COUNT 9.4 TH/MM3 (4.0-11.0)
[2016-07-13] MEDS: ACETAMINOPHEN/HYDROcodone 325 MG/5 MG TAB PO PRN (20:34)
[2016-07-13 20:46] LABS: APTT (PATIENT) 25.9 SEC (24.3-30.1)
[2016-07-14] VITALS (14 sets, daily range): BP systolic 109–177; BP diastolic 64–86; PULSE 77–92; RESP 16–22; TEMP 97.9–98.8; O2SAT 96–99
[2016-07-14] MEDS: ONDANSETRON HCL 4 MG/2 ML VIAL IV PRN (00:41)
[2016-07-14] MEDS: ACETAMINOPHEN/HYDROcodone 325 MG/5 MG TAB PO PRN ×5 (00:41→19:06)
[2016-07-14 01:59] LABS: BASOPHIL % 0.1 % (0.0-2.0); EOSINOPHIL % 0.1 % (0.0-4.0); HEMATOCRIT 37.3 % (35.0-46.0); HEMO FLAGS DIFF FINAL; LYMPH % 18.3 % (9.0-44.0); LYMPHOCYTE # 1.8 TH/MM3 (1.0-4.8); MEAN CORPUSCULAR HEMOGLOBIN 28.1 PG (27.0-34.0); MEAN CORPUSCULAR HGB CONC 33.5 % (32.0-36.0); MONO % 9.9 % (0.0-8.0); NEUT % 71.6 % (16.0-70.0); PLATELET COUNT 156 TH/MM3 (150-450); RED BLOOD COUNT 4.45 MIL/MM3 (4.00-5.30); RED CELL DISTRIBUTION WIDTH 14.3 % (11.6-17.2); WHITE BLOOD COUNT 9.8 TH/MM3 (4.0-11.0)
[2016-07-14 02:09] LABS: APTT (PATIENT) 28.5 SEC (24.3-30.1)
[2016-07-14 02:32] LABS: INDIRECT BILIRUBIN 0.2 MG/DL (0.0-0.8); TOTAL BILIRUBIN ADULT 0.3 MG/DL (0.2-1.0)
[2016-07-14] MEDS: CATHFLO ACTIVASE INJ 10 MG in SODIUM CHLORID 0.9% 500 ML INJ 500 ML IV SCH ×2 (02:33→11:53)
[2016-07-14] MEDS: CHLORHEXIDINE GLUCONATE 2 % 1 PACK (2 CLOTHS) TOP SCH (04:00)
[2016-07-14 05:17] LABS: ALKALINE PHOSPHATASE 73 U/L (45-117); ALT (GPT) 33 U/L (10-53); ANION GAP 10 MEQ/L (5-15); AST (GOT) 32 U/L (15-37); BICARBONATE 22.4 MEQ/L (21.0-32.0); BLOOD UREA NITROGEN 9 MG/DL (7-18); CHLORIDE 111 MEQ/L (98-107); GLOMERULAR FILTRATION RATE 82 ML/MIN (>89); HDL CHOLESTEROL 88.9 MG/DL (40.0-60.0); LDL CHOLESTEROL 74 MG/DL (0-99); MAGNESIUM 1.9 MG/DL (1.5-2.5); POTASSIUM 4.1 MEQ/L (3.5-5.1); SODIUM (NA) 143 MEQ/L (136-145); TOTAL BILIRUBIN ADULT 0.3 MG/DL (0.2-1.0)
[2016-07-14] MEDS: INSULIN NovoLIN REGULAR SUPPLEMENTAL SCALE SQ SCH ×4 (06:06→21:00)
[2016-07-14 07:57] LABS: AUTOMATED NEUTROPHIL # 6.4 TH/MM3 (1.8-7.7); BASOPHIL % 0.3 % (0.0-2.0); EOSINOPHIL % 0.5 % (0.0-4.0); HEMATOCRIT 37.7 % (35.0-46.0); HEMO FLAGS DIFF FINAL; LYMPH % 20.3 % (9.0-44.0); LYMPHOCYTE # 1.9 TH/MM3 (1.0-4.8); MEAN CELL VOLUME 83.8 FL (80.0-100.0); MEAN CORPUSCULAR HEMOGLOBIN 27.6 PG (27.0-34.0); MONO % 10.4 % (0.0-8.0); NEUT % 68.5 % (16.0-70.0); PLATELET COUNT 135 TH/MM3 (150-450); RED CELL DISTRIBUTION WIDTH 14.3 % (11.6-17.2); WHITE BLOOD COUNT 9.4 TH/MM3 (4.0-11.0)
[2016-07-14 08:13] LABS: APTT (PATIENT) 27.8 SEC (24.3-30.1)
[2016-07-14] MEDS: DOCUSATE SODIUM 100 MG CAP PO SCH ×2 (09:00→21:00)
[2016-07-14] MEDS: SODIUM CHLORIDE 0.9% FLUSH 5 ML FLUSH IV FLUSH SCH ×2 (09:00→21:05)
[2016-07-14] MEDS: SODIUM CHLORIDE 0.9% FLUSH 5 ML FLUSH IVF SCH (09:00)
[2016-07-14 09:34] LABS: HEMOGLOBIN Ao 85.3 %; HEMOGLOBIN F 1.3 %; HEMOGLOBIN P3 3.6 %
[2016-07-14] MEDS: PANTOPRAZOLE SODIUM 40 MG VIAL IV SCH (09:37)
[2016-07-14] MEDS ORDERED: PNEUMOCOCCAL POLYVALENT INJ 25 MCG/0.5 ML SYR IM ONE (10:00)
[2016-07-14] MEDS: SODIUM CHLOR 0.9% 1000 ML INJ 1,000 ML IV SCH ×2 (11:54→21:06)
[2016-07-14 15:03] LABS: AUTOMATED NEUTROPHIL # 5.4 TH/MM3 (1.8-7.7); BASOPHIL % 0.4 % (0.0-2.0); EOSINOPHIL # 0.1 TH/MM3 (0-0.4); EOSINOPHIL % 1.2 % (0.0-4.0); HEMO FLAGS DIFF FINAL; LYMPH % 27.6 % (9.0-44.0); LYMPHOCYTE # 2.4 TH/MM3 (1.0-4.8); MEAN CELL VOLUME 84.2 FL (80.0-100.0); MEAN CORPUSCULAR HEMOGLOBIN 27.6 PG (27.0-34.0); MEAN CORPUSCULAR HGB CONC 32.8 % (32.0-36.0); NEUT % 61.8 % (16.0-70.0); PLATELET COUNT 123 TH/MM3 (150-450); RED CELL DISTRIBUTION WIDTH 14.3 % (11.6-17.2); WHITE BLOOD COUNT 8.7 TH/MM3 (4.0-11.0)
--- NOTE | 2016-07-14 16:12 | HHI.CCPN ---
Subjective Remarks/Hospital Course 30-year-old male. Date of admission 07/13/2016. Past medical history includes morbid obesity and congenital ureteral abnormality. She is on contro; pills. She presents to [facility] with the following history. She recently traveled to the [place] to return approximately one month ago. 2 weeks ago, patient noticed pain behind her right calf that "went away". Today, patient had a syncopal episode. She did not strike her head. 911 was called and when they arrive to patient was awakened they went over to the stretcher and she had a second syncopal episode in front of them. She was pale and diaphoretic. Sinus tachycardiac and otherwise blood pressure within normal limits EKG revealed sinus tachycardia with an S1, Q3 T3 medication. Chest x-ray revealed no acute findings. CT head negative for acute cranial findings. CTA chest revealed extensive bilateral pulmonary embolism without saddle emboli. Patient was started on heparin drip by the ED staff. She has leukocytosis 16, 000, potassium 3.4. Blood sugar 198. Urine pending. Troponin 0.78. Subjective 07/14 The patient continues on alteplase therapy scheduled to be discontinued at 5 PM today. Heparin infusing at 500 units an hour. Will resume PE protocol heparin infusion upon completion of alteplase. Urine culture pending. Objective Vital Signs Date Time Temp Pulse Resp B/P Pulse Ox O2 Delivery O2 Flow Rate FiO2 07/14/16 14:00 79 07/14/16 12:00 97.9 16 177/86 98 07/14/16 08:38 Nasal Cannula 2.00 Intake and Output 07/13/16 07/13/16 07/14/16 08:00 16:00 00:00 Intake Total 1320 ml Output Total 675 ml Balance 645 ml Result Diagram: 07/14/16 1415 07/14/16 0145 Imaging Last Impressions Chest X-Ray 07/13/16 0808 Signed Impressions: Service Date/Time: Wednesday, July 13, 2016 08:56 - CONCLUSION: No acute disease. Jet King MD CT Angiography 07/13/16 0808 Signed Impressions: Service Date/Time: Wednesday, July 13, 2016 09:25 - CONCLUSION: Extensive bilateral pulmonary emboli. Jet King MD Head CT 07/13/16 0000 Signed Impressions: Service Date/Time: Wednesday, July 13, 2016 09:29 - CONCLUSION: No acute intracranial disease. Jet King MD Objective Remarks GENERAL: 30-year-old female, resting in bed in no acute distress SKIN: Warm and dry. HEAD: Atraumatic. Normocephalic. EYES: Pupils equal and round about 5 mm bilaterally and minimally reactive. No scleral icterus. No injection or drainage. ENT: No nasal bleeding or discharge. Mucous membranes pink and moist. NECK: Trachea midline. No JVD. No carotid bruit. CARDIOVASCULAR: Tachycardic, RR. S1, S2. No S4. Without murmur RESPIRATORY: No accessory muscle use. Clear to auscultation. Breath sounds equal bilaterally. GASTROINTESTINAL: Abdomen soft, non-tender, obese. Hypoactive bowel sounds are appreciated. MUSCULOSKELETAL: Extremities with nonpitting peripheral edema. Tattoo on left dorsal aspect of foot. Positive Homans sign right calf NEUROLOGICAL: Awake and alert. No obvious cranial nerve deficits. Motor grossly within normal limits.Motor strength 5/ B/L arms and legs. Normal speech. PSYCHIATRIC: Appropriate mood and affect; insight and judgment normal. Urinary Catheter: Yes Date of Insertion: Jul 13, 2016 Vascular Central Line Catheter: Yes Date of Insertion: Jul 13, 2016 Side: Right Location: Internal, Jugular A/P Assessment and Plan Neuro/Psych: Syncope - likely cardiogenic secondary to pulmonary embolism Acetaminophen for fever [place]/morphine for pain management Carotid Dopplers ordered for completeness of workup CV: Sinus tachycardia Elevated troponin - likely secondary to sinus tachycardia/demand ischemia from PE Likely secondary to pulmonary embolism. Currently on normal saline at 84 cc an hour. Currently not requiring vasopressors and/or antihypertensives. Serial troponins trended down Resp: Bilateral submassive pulmonary embolism CT angiogram 07/13 revealed bilateral pulmonary embolism involving all lobes. No saddle pulmonary emboli. EKG revealed S1 Q 3 T3 motif with sinus tachycardia Heparin drip initiated. PE protocol 2-D echocardiogram/bilateral lobes and ultrasounds pending Currently hemodynamic stable. With sinus tachycardia if 2-D echocardiogram reveals RV strain Alteplase 1 mg/hr to be completed at 5 pm,concurrently Heparin infusion 500 units/hour Upon completion of alteplase, heparin PE protocol to be instituted GI: Clear liquid diet will advance to regular diet Protonix for GI prophylaxis Colace/as needed Senokot for bowel regimen : History of congenital ureteral abnormality Keith if indicated for accurate I's nose and critical patient DC Keith in a.m. Endo: Hyperglycemia - metabolic syndrome Sliding-scale insulin with Accu-Cheks before meals/at bedtime maintain euglycemia. Low regimen. Hgb A1C 5.4 Renal: Creatinine currently within normal limits Accurate I/Os Monitor urine output Heme: Leukocytosis-resolved Likely leukemoid type reaction. See below for infectious workup Follow-up CBC/coags in AM. Monitor trends Hypercoagulable workup , results pending. Note that protein C/S and anti- thrombin 3 will be falsely low due to ongoing thrombosis. It may also identify reactive non-causative antiphospholipid antibodies ID: Monitor for infection. UA ordered Chest x-ray revealed no acute processes FEN: Hypokalemia-resolved Replace per ICU electrolyte protocol. 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 Hcg 1 Access - Utilize peripheral IV. Place second peripheral IV with vascular access. Central line Day 1 Prophylaxis - GI - Protonix - DVT - heparin drip Critical Care: The total critical care time was 43minutes. Time to perform other separately billable procedures was not included in the critical care time. Echocardiogram reviewed. Moderate to severe RV dilation with Glez sign. Elevated pulmonary pressures. Patient tachycardic at 122 with systolic blood pressure of 102. Due to the bilateral nature the pulmonary embolism, Dr. Ly recommendations instituted.Central line placement and start alteplase at 2 mg an hour 4 hours followed by 1 mg an hour for 20 hours. Heparin drip at 500 units an hour. Every 6 hours labs including CBC, PTT and fibrinogen. Upon completion of Alteplase, start heparin drip per PE protocol dosage. Physician Aleena Barroso MD Jul 14, 2016 16:12
[2016-07-14 16:33] LABS: APTT (PATIENT) 26.1 SEC (24.3-30.1)
[2016-07-14 17:53] LABS: INTERNATIONAL NORMALIZED RATIO 1.1 RATIO; PROTHROMBIN TIME - PATIENT 12.6 SEC (9.8-11.6)
[2016-07-14] MEDS: HEPARIN-D5W INJ 250 ML IV SCH (20:58)
[2016-07-14 23:57] LABS: APTT (PATIENT) 35.2 SEC (24.3-30.1)
[2016-07-15] VITALS (13 sets, daily range): BP systolic 106–136; BP diastolic 59–86; PULSE 76–87; RESP 16–18; TEMP 97.9–98.4; O2SAT 92–96
[2016-07-15] MEDS: CHLORHEXIDINE GLUCONATE 2 % 1 PACK (2 CLOTHS) TOP SCH (03:10)
[2016-07-15] MEDS: ONDANSETRON HCL 4 MG/2 ML VIAL IV PRN (04:54)
[2016-07-15 06:12] LABS: HEMATOCRIT 35.7 % (35.0-46.0); MEAN CELL VOLUME 83.6 FL (80.0-100.0); MEAN CORPUSCULAR HEMOGLOBIN 27.8 PG (27.0-34.0); MEAN CORPUSCULAR HGB CONC 33.3 % (32.0-36.0); PLATELET COUNT 109 TH/MM3 (150-450); RED BLOOD COUNT 4.27 MIL/MM3 (4.00-5.30); RED CELL DISTRIBUTION WIDTH 13.8 % (11.6-17.2); REVIEW FLAG FINAL; WHITE BLOOD COUNT 7.3 TH/MM3 (4.0-11.0)
[2016-07-15 06:21] LABS: APTT (PATIENT) 41.2 SEC (24.3-30.1)
[2016-07-15] MEDS: INSULIN NovoLIN REGULAR SUPPLEMENTAL SCALE SQ SCH ×4 (06:42→20:11)
[2016-07-15 06:43] LABS: BICARBONATE 24.5 MEQ/L (21.0-32.0); MAGNESIUM 1.9 MG/DL (1.5-2.5); POTASSIUM 4.1 MEQ/L (3.5-5.1)
[2016-07-15] MEDS: DOCUSATE SODIUM 100 MG CAP PO SCH ×2 (08:18→20:09)
[2016-07-15] MEDS: SODIUM CHLORIDE 0.9% FLUSH 5 ML FLUSH IVF SCH (08:20)
[2016-07-15] MEDS: SODIUM CHLORIDE 0.9% FLUSH 5 ML FLUSH IV FLUSH SCH ×2 (08:20→20:10)
[2016-07-15] MEDS: PANTOPRAZOLE SODIUM 40 MG VIAL IV SCH (08:20)
[2016-07-15] MEDS: ACETAMINOPHEN/HYDROcodone 325 MG/5 MG TAB PO PRN ×3 (08:24→20:09)
[2016-07-15] MEDS: HEPARIN-D5W INJ 250 ML IV SCH (10:42)
[2016-07-15] MEDS: SODIUM CHLOR 0.9% 1000 ML INJ 1,000 ML IV SCH (10:43)
--- NOTE | 2016-07-15 13:00 | HHI.CCPN ---
Subjective Remarks/Hospital Course 30-year-old male. Date of admission 07/13/2016. Past medical history includes morbid obesity and congenital ureteral abnormality. She is on contro; pills. She presents to [facility] with the following history. She recently traveled to the [place] to return approximately one month ago. 2 weeks ago, patient noticed pain behind her right calf that "went away". Today, patient had a syncopal episode. She did not strike her head. 911 was called and when they arrive to patient was awakened they went over to the stretcher and she had a second syncopal episode in front of them. She was pale and diaphoretic. Sinus tachycardiac and otherwise blood pressure within normal limits EKG revealed sinus tachycardia with an S1, Q3 T3 medication. Chest x-ray revealed no acute findings. CT head negative for acute cranial findings. CTA chest revealed extensive bilateral pulmonary embolism without saddle emboli. Patient was started on heparin drip by the ED staff. She has leukocytosis 16, 000, potassium 3.4. Blood sugar 198. Urine pending. Troponin 0.78. Subjective 07/14 The patient continues on alteplase therapy scheduled to be discontinued at 5 PM today. Heparin infusing at 500 units an hour. Will resume PE protocol heparin infusion upon completion of alteplase. Urine culture pending. 06/14 Afebrile. Heparin infusion, PE protocol, plan to transition to Dabigatran BID today. Urine culture revealed strep species, antibiotics initiated, Keith to be discontinued. Patient experiencing no shortness of breath, telemetry sinus rhythm. The patient was advanced to a regular diet tolerating it well. Pain well controlled right lower extremity. Objective Vital Signs Date Time Temp Pulse Resp B/P Pulse Ox O2 Delivery O2 Flow Rate FiO2 07/15/16 10:00 78 07/15/16 04:00 98.4 16 122/86 96 07/14/16 19:08 Nasal Cannula 2.00 Intake and Output 07/14/16 07/14/16 07/15/16 08:00 16:00 00:00 Intake Total 1120 ml 1472 ml 1265 ml Output Total 350 ml 550 ml 850 ml Balance 770 ml 922 ml 415 ml Result Diagram: 07/15/16 0600 07/15/16 0600 Imaging Last Impressions Chest X-Ray 07/13/16 0808 Signed Impressions: Service Date/Time: Wednesday, July 13, 2016 08:56 - CONCLUSION: No acute disease. Jet King MD CT Angiography 07/13/16 0808 Signed Impressions: Service Date/Time: Wednesday, July 13, 2016 09:25 - CONCLUSION: Extensive bilateral pulmonary emboli. Jet King MD Head CT 07/13/16 0000 Signed Impressions: Service Date/Time: Wednesday, July 13, 2016 09:29 - CONCLUSION: No acute intracranial disease. Jet King MD Objective Remarks GENERAL: 30-year-old female, resting in bed in no acute distress SKIN: Warm and dry. HEAD: Atraumatic. Normocephalic. EYES: Pupils equal and round about 5 mm bilaterally and minimally reactive. No scleral icterus. No injection or drainage. ENT: No nasal bleeding or discharge. Mucous membranes pink and moist. NECK: Trachea midline. No JVD. No carotid bruit. CARDIOVASCULAR: Tachycardic, RR. S1, S2. No S4. Without murmur RESPIRATORY: No accessory muscle use. Clear to auscultation. Breath sounds equal bilaterally. GASTROINTESTINAL: Abdomen soft, non-tender, obese. Hypoactive bowel sounds are appreciated. MUSCULOSKELETAL: Extremities with nonpitting peripheral edema. Tattoo on left dorsal aspect of foot. Positive Homans sign right calf NEUROLOGICAL: Awake and alert. No obvious cranial nerve deficits. Motor grossly within normal limits.Motor strength 5/ B/L arms and legs. Normal speech. PSYCHIATRIC: Appropriate mood and affect; insight and judgment normal. Urinary Catheter: Yes Assessment to: Remove Date of Insertion: Jul 13, 2016 Date of Removal: Jul 15, 2016 Vascular Central Line Catheter: Yes Assessment to: Remove Date of Insertion: Jul 13, 2016 Date of Removal: Jul 15, 2016 Side: Right Location: Internal, Jugular A/P Assessment and Plan Neuro/Psych: Syncope - likely cardiogenic secondary to pulmonary embolism Pain RLE-resolved Acetaminophen for fever [place]/morphine for pain management GCS 15, alert and oriented CV: Sinus tachycardia-resolved Elevated troponin - likely secondary to sinus tachycardia/demand ischemia from PE Likely secondary to pulmonary embolism. Normal saline at 84/hr discontinued Currently not requiring vasopressors and/or antihypertensives. Serial troponins trended down Telemetry-normal sinus rhythm, normotensive, hemodynamically stable Resp: Bilateral submassive pulmonary embolism CT angiogram 07/13 revealed bilateral pulmonary embolism involving all lobes. No saddle pulmonary emboli. EKG revealed S1 Q 3 T3 motif with sinus tachycardia Heparin drip 07/14. PE protocol-transition to Dabigatran 150mg BID this afternoon 2 hours post discontinuation of heparin infusion. 2-D echocardiogram/bilateral lobes and ultrasounds pending Currently hemodynamic stable. With sinus tachycardia if 2-D echocardiogram reveals RV strain 07/14 Alteplase completed 5pm.Heparin PE protocol initiated. GI: Regular diet Discontinuation Protonix for GI prophylaxis Colace/as needed Senokot for bowel regimen : History of congenital ureteral abnormality Keith if indicated for accurate I's nose and critical patient DC Keith Urine culture-strep species Endo: Hyperglycemia - metabolic syndrome Sliding-scale insulin with Accu-Cheks before meals/at bedtime maintain euglycemia. Low regimen. Hgb A1C 5.4 Renal: Creatinine currently within normal limits Accurate I/Os Monitor urine output Heme: Leukocytosis-resolved Likely leukemoid type reaction. See below for infectious workup Follow-up CBC/coags in AM. Monitor trends Hypercoagulable workup , results pending. Note that protein C/S and anti- thrombin 3 will be falsely low due to ongoing thrombosis. It may also identify reactive non-causative antiphospholipid antibodies ID: Monitor for infection. UA ordered Chest x-ray revealed no acute processes -Urine culture-strep species, Nitrofurantoin 100mg BID x 5 days FEN: Hypokalemia-resolved Replace per ICU electrolyte protocol. 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 Hcg 1 Access - Utilize peripheral IV. Place second peripheral IV with vascular access. Discontinue central line 2 hours post discontinuation of heparin and prior to initiation of Pradaxa. Prophylaxis - GI - D/C Protonix no indication for GI prophylaxis patient tolerating regular diet - DVT - Heparin infusion, will begin Dabigatran Critical Care: Level 3 Echocardiogram reviewed. Moderate to severe RV dilation with Glez sign. Elevated pulmonary pressures. Patient tachycardic at 122 with systolic blood pressure of 102. Due to the bilateral nature the pulmonary embolism, the patient was transitioned yesterday from alteplase 2 heparin infusion PE protocol. The patient will now be transitioned from heparin infusion to Dabigatran BID. Patient progressing well,plan to transfer to Hospitalist. Physician Aleena Barroso MD Jul 15, 2016 13:00
[2016-07-15] MEDS: DABIGATRAN ETEXILATE 150 MG CAP PO SCH ×2 (15:00→20:07)
[2016-07-15] MEDS: NITROFURANTOIN MONOHYD MACROCR 100 MG CAP PO SCH (21:32)
[2016-07-16] VITALS (13 sets, daily range): BP systolic 134–175; BP diastolic 60–96; PULSE 60–94; RESP 16–21; TEMP 98.2–100.3; O2SAT 82–96
[2016-07-16] MEDS: ACETAMINOPHEN/HYDROcodone 325 MG/5 MG TAB PO PRN ×5 (03:51→22:21)
[2016-07-16] MEDS: CHLORHEXIDINE GLUCONATE 2 % 1 PACK (2 CLOTHS) TOP SCH ×2 (04:00→20:40)
[2016-07-16] MEDS: INSULIN NovoLIN REGULAR SUPPLEMENTAL SCALE SQ SCH ×4 (06:45→20:40)
[2016-07-16] MEDS: DABIGATRAN ETEXILATE 150 MG CAP PO SCH ×2 (07:59→20:39)
[2016-07-16] MEDS: SODIUM CHLORIDE 0.9% FLUSH 5 ML FLUSH IV FLUSH SCH ×2 (08:00→20:40)
[2016-07-16] MEDS: NITROFURANTOIN MONOHYD MACROCR 100 MG CAP PO SCH ×2 (08:00→18:20)
[2016-07-16] MEDS: DOCUSATE SODIUM 100 MG CAP PO SCH ×2 (08:00→20:40)
[2016-07-16] MEDS: SODIUM CHLORIDE 0.9% FLUSH 5 ML FLUSH IVF SCH (08:00)
[2016-07-16] MEDS: PANTOPRAZOLE SODIUM 40 MG VIAL IV SCH (08:00)
--- NOTE | 2016-07-16 09:52 | HHI.CCPN ---
Subjective Remarks/Hospital Course 30-year-old male. Date of admission 07/13/2016. Past medical history includes morbid obesity and congenital ureteral abnormality. She is on contro; pills. She presents to [facility] with the following history. She recently traveled to the [place] to return approximately one month ago. 2 weeks ago, patient noticed pain behind her right calf that "went away". Today, patient had a syncopal episode. She did not strike her head. 911 was called and when they arrive to patient was awakened they went over to the stretcher and she had a second syncopal episode in front of them. She was pale and diaphoretic. Sinus tachycardiac and otherwise blood pressure within normal limits EKG revealed sinus tachycardia with an S1, Q3 T3 medication. Chest x-ray revealed no acute findings. CT head negative for acute cranial findings. CTA chest revealed extensive bilateral pulmonary embolism without saddle emboli. Patient was started on heparin drip by the ED staff. She has leukocytosis 16, 000, potassium 3.4. Blood sugar 198. Urine pending. Troponin 0.78. Subjective 07/14 The patient continues on alteplase therapy scheduled to be discontinued at 5 PM today. Heparin infusing at 500 units an hour. Will resume PE protocol heparin infusion upon completion of alteplase. Urine culture pending. 07/15 Afebrile. Heparin infusion, PE protocol, plan to transition to Dabigatran BID today. Urine culture revealed strep species, antibiotics initiated, Yanes to be discontinued. Patient experiencing no shortness of breath, telemetry sinus rhythm. The patient was advanced to a regular diet tolerating it well. Pain well controlled right lower extremity. 07/16 The patient has not voided since last night, the patient states unable to void on bedpan. Bladder scan this am 1000cc.The patient is OOB this am with assistance to bedside commode.The patient continues on Room Air with O2 sats 97% . The patient denies pain at this time. Objective Vital Signs Date Time Temp Pulse Resp B/P Pulse Ox O2 Delivery O2 Flow Rate FiO2 07/16/16 06:00 84 07/16/16 04:00 98.4 16 175/96 96 07/15/16 22:49 Nasal Cannula 2.00 Intake and Output 07/15/16 07/15/16 07/16/16 08:00 16:00 00:00 Intake Total 920 ml 1250 ml 200 ml Output Total 600 ml 2400 ml 1400 ml Balance 320 ml -1150 ml -1200 ml Result Diagram: 07/15/16 0600 07/15/16 0600 Other Results Microbiology Date/Time Procedure Status Source Growth 07/13/16 16:05 Urine Culture - Final Complete Urine Random Urine Viridans Streptococcus Grp Imaging Last Impressions Chest X-Ray 07/13/16 0808 Signed Impressions: Service Date/Time: Wednesday, July 13, 2016 08:56 - CONCLUSION: No acute disease. Jet King MD CT Angiography 07/13/16 0808 Signed Impressions: Service Date/Time: Wednesday, July 13, 2016 09:25 - CONCLUSION: Extensive bilateral pulmonary emboli. Jet King MD Head CT 07/13/16 0000 Signed Impressions: Service Date/Time: Wednesday, July 13, 2016 09:29 - CONCLUSION: No acute intracranial disease. Jet King MD Objective Remarks GENERAL: 30-year-old female, resting in bed in no acute distress SKIN: Warm and dry. HEAD: Atraumatic. Normocephalic. EYES: Pupils equal and round about 5 mm bilaterally and minimally reactive. No scleral icterus. No injection or drainage. ENT: No nasal bleeding or discharge. Mucous membranes pink and moist. NECK: Trachea midline. No JVD. No carotid bruit. CARDIOVASCULAR: Tachycardic, RR. S1, S2. No S4. Without murmur RESPIRATORY: No accessory muscle use. Clear to auscultation. Breath sounds equal bilaterally. GASTROINTESTINAL: Abdomen soft, non-tender, obese. Hypoactive bowel sounds are appreciated. MUSCULOSKELETAL: Extremities with nonpitting peripheral edema. Tattoo on left dorsal aspect of foot. Positive Homans sign right calf NEUROLOGICAL: Awake and alert. No obvious cranial nerve deficits. Motor grossly within normal limits.Motor strength 5/ B/L arms and legs. Normal speech. PSYCHIATRIC: Appropriate mood and affect; insight and judgment normal. Date of Insertion: Jul 13, 2016 Date of Removal: Jul 15, 2016 Date of Insertion: Jul 13, 2016 Date of Removal: Jul 15, 2016 Side: Right Location: Internal, Jugular A/P Assessment and Plan Neuro/Psych: Syncope - likely cardiogenic secondary to pulmonary embolism Pain RLE-resolved Acetaminophen PRN for temp > 101.0 [place]/morphine for pain management GCS 15, alert and oriented CV: Sinus tachycardia-resolved Elevated troponin - likely secondary to sinus tachycardia/demand ischemia from PE Currently not requiring vasopressors and/or antihypertensives. Serial troponins trended down Telemetry-normal sinus rhythm, normotensive, hemodynamically stable Resp: Bilateral submassive pulmonary embolism CT angiogram 07/13 revealed bilateral pulmonary embolism involving all lobes. No saddle pulmonary emboli. EKG revealed S1 Q 3 T3 motif with sinus tachycardia Heparin drip 07/14. PE protocol-transition to Dabigatran 150mg BID this afternoon 2 hours post discontinuation of heparin infusion. 2-D echocardiogram/bilateral lobes and ultrasounds pending Currently hemodynamic stable. With sinus tachycardia if 2-D echocardiogram reveals RV strain 07/14 Alteplase completed 5pm.Heparin PE protocol initiated. 07/15 The patient was transitioned to Dabigtran BID GI: Regular diet Discontinuation 07/14 Protonix for GI prophylaxis- does not meet requirements Colace/as needed Senokot for bowel regimen : History of congenital ureteral abnormality OOB to bedside to commode- if unable to void will reinsert yanes Urine culture-strep species Endo: Hyperglycemia - metabolic syndrome Sliding-scale insulin with Accu-Cheks before meals/at bedtime maintain euglycemia. Low regimen. Hgb A1C 5.4 Renal: Creatinine currently within normal limits Accurate I/Os Monitor urine output Heme: Leukocytosis-resolved See below for infectious workup Follow-up CBC/coags in AM. Monitor trends Hypercoagulable workup , results pending. Note that protein C/S and anti- thrombin 3 will be falsely low due to ongoing thrombosis. It may also identify reactive non-causative antiphospholipid antibodies ID: Chest x-ray revealed no acute processes -Urine culture-strep species, Nitrofurantoin 100mg BID x 5 days FEN: Hypokalemia-resolved Replace per ICU electrolyte protocol. 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 Discussed with patient to explore other options Hcg 1 Access - PIV's x 2 Prophylaxis - GI - D/C Protonix no indication for GI prophylaxis patient tolerating regular diet - DVT - Heparin infusion, Dabigatran Critical Care: Level 2 Echocardiogram reviewed. Moderate to severe RV dilation with Glez sign. Elevated pulmonary pressures. Patient tachycardic at 122 with systolic blood pressure of 102. Due to the bilateral nature the pulmonary embolism, the patient was transitioned yesterday from alteplase 2 heparin infusion PE protocol. The patient was transitioned to Dabigatran BID. Patient progressing well,plan to transfer to Hospitalist. Physician Aleena Barroso MD Jul 16, 2016 09:52
[2016-07-16] MEDS: ONDANSETRON HCL 4 MG/2 ML VIAL IV PRN (10:36)
[2016-07-17] VITALS: BP 127/62; PULSE 96; RESP 20; TEMP 99.2; O2SAT 93
[2016-07-17] MEDS: ACETAMINOPHEN/HYDROcodone 325 MG/5 MG TAB PO PRN ×3 (02:24→11:28)
[2016-07-17] MEDS: ONDANSETRON HCL 4 MG/2 ML VIAL IV PRN ×2 (02:26→10:24)
[2016-07-17 04:00] VITALS: BP 136/67; PULSE 90; RESP 20; TEMP 97.8; O2SAT 94
[2016-07-17] MEDS: INSULIN NovoLIN REGULAR SUPPLEMENTAL SCALE SQ SCH ×2 (06:44→11:00)
[2016-07-17] MEDS: DABIGATRAN ETEXILATE 150 MG CAP PO SCH (07:51)
[2016-07-17] MEDS: PANTOPRAZOLE SODIUM 40 MG VIAL IV SCH (07:51)
[2016-07-17] MEDS: DOCUSATE SODIUM 100 MG CAP PO SCH (07:52)
[2016-07-17] MEDS: NITROFURANTOIN MONOHYD MACROCR 100 MG CAP PO SCH (07:52)
[2016-07-17 08:00] VITALS: BP 132/70; PULSE 93; RESP 20; TEMP 97.9; O2SAT 92
[2016-07-17] MEDS: SODIUM CHLORIDE 0.9% FLUSH 5 ML FLUSH IV FLUSH SCH (08:04)
[2016-07-17] MEDS: SODIUM CHLORIDE 0.9% FLUSH 5 ML FLUSH IVF SCH (08:04)
[2016-07-17 12:00] VITALS: BP 152/82; PULSE 92; RESP 20; TEMP 98.1; O2SAT 100
[2016-07-17 13:06] VITALS: O2SAT 94
[2016-07-17] MEDS ORDERED: MACR100C2 PO (14:28)
[2016-07-17] MEDS ORDERED: PRAD150C PO (14:28)
--- NOTE | 2016-07-17 14:30 | HHI.DCPOC ---
Discharge Care Plan Diagnosis: (1) Acute pulmonary embolism (2) DVT (deep venous thrombosis) (3) Syncope (4) Elevated troponin I level (5) Congenital abnormality of ureter (6) Morbid obesity with BMI of 50.0-59.9, adult Goals to Promote Your Health * To prevent worsening of your condition and complications * To maintain your health at the optimal level Directions to Meet Your Goals Take your medications as prescribed Follow your dietary instruction Follow activity as directed Keep your appointments as scheduled Take your immunizations and boosters as scheduled If your symptoms worsen call your PCP, if no PCP go to Urgent Care Center or Emergency Room Smoking is Dangerous to Your Health. Avoid second hand smoke Call the 24-hour hour crisis hotline for domestic abuse at [facility] Jul 17, 2016 14:30 Edwardo Lee DO Jul 21, 2016 07:11
[2016-07-17 15:05] LABS: HEMATOCRIT 44.9 % (35.0-46.0); MEAN CELL VOLUME 83.1 FL (80.0-100.0); MEAN CORPUSCULAR HGB CONC 33.7 % (32.0-36.0); PLATELET COUNT 177 TH/MM3 (150-450); RED BLOOD COUNT 5.41 MIL/MM3 (4.00-5.30); RED CELL DISTRIBUTION WIDTH 13.8 % (11.6-17.2); REVIEW FLAG FINAL; WHITE BLOOD COUNT 12.6 TH/MM3 (4.0-11.0)
--- NOTE | 2016-07-17 15:08 | HHI.DS ---
Discharge Summary Admission Date Jul 13, 2016 at 10:30 Discharge Date: Jul 17, 2016 Admitting Diagnosis Bilateral pulmonary embolism (1) Acute pulmonary embolism Diagnosis: Principal (2) Syncope Diagnosis: Secondary (3) Elevated troponin I level Diagnosis: Secondary (4) Respiratory distress Diagnosis: Secondary (5) Leukocytosis Diagnosis: Secondary (6) Hypopotassemia Diagnosis: Secondary (7) SIRS without infection with organ dysfunction Diagnosis: Secondary (8) Morbid obesity with BMI of 50.0-59.9, adult Diagnosis: Secondary (9) Congenital abnormality of ureter Diagnosis: Secondary Brief History Ms. Izaguirre is a 30 y/o WF with morbid obesity and congenital ureteral abnormality. She presented to the ED at [facility] on 07/13/16 after a syncopal episode. Pt is on OCP and had recently traveled to the [place] from which she returned approximately one month ago. Around 2 weeks ago she noticed pain behind her right calf that "went away". On the day of admission she had a syncopal episode. 911 was called and when they arrived the pt was awakened and went over to the stretcher when she had a second syncopal episode in front of them. She was pale and diaphoretic. Pt was noted to be in sinus tachycardia and otherwise blood pressure within normal limits. CBC/BMP: 07/15/16 0600 07/15/16 0600 Significant Findings Laboratory Tests Test 07/14/16 07/15/16 23:10 06:00 Activated Partial 35.2 SEC 41.2 SEC Thromboplast Time (24.3-30.1) (24.3-30.1) Platelet Count 109 TH/MM3 (150-450) Chloride Level 110 MEQ/L (98-107) Calcium Level 8.0 MG/DL (8.5-10.1) Phosphorus Level 2.0 MG/DL (2.5-4.9) Imaging Last Impressions Chest X-Ray 07/13/16 1427 Signed Impressions: Service Date/Time: Wednesday, July 13, 2016 14:41 - CONCLUSION: No acute disease. Adequate placement of left jugular central line. No pneumothorax Jet King MD CT Angiography 07/13/16 0808 Signed Impressions: Service Date/Time: Wednesday, July 13, 2016 09:25 - CONCLUSION: Extensive bilateral pulmonary emboli. Jet King MD Lower Extremity Ultrasound 07/13/16 0000 Signed Impressions: Service Date/Time: Wednesday, July 13, 2016 11:44 - CONCLUSION: Nonocclusive thrombosis in both legs. Jet King MD Head CT 07/13/16 0000 Signed Impressions: Service Date/Time: Wednesday, July 13, 2016 09:29 - CONCLUSION: No acute intracranial disease. eJt King MD Carotid Artery Ultrasound 07/13/16 0000 Signed Impressions: Service Date/Time: Wednesday, July 13, 2016 12:16 - CONCLUSION: No hemodynamically significant stenosis in either carotid artery. Jet King MD Hospital Course Pt presented to the ED on 07/13/16 after syncopal episodes x 2. In the ED she was noted to have sinus tachycardia. Chest x-ray revealed no acute findings. CT head negative for acute cranial findings. LE US revealed bilateral nonocclusive thrombus. CTA chest revealed extensive bilateral pulmonary embolism without saddle emboli. Patient was started on heparin drip by the ED staff. She had leukocytosis 16,000, potassium 3.4, Blood sugar 198, and Troponin 0.78. Pt was admitted to Intensive Care under the care of the Critical Care staff. Pt was initiated on Alteplase therapy in the ICU and Heparin infusion. The Alteplase therapy was completed on 07/14. She was continued on PE protocol with heparin infusion upon completion of alteplase. On 07/15 pt was transitioned to Dabigatran 150mg BID. Urine culture revealed strep viridans, antibiotics initiated, Keith was discontinued. Pt was able to be weaned off supplemental O2 to RA. Her RLE pain has been controlled with [place]. 2D echo () revealed estimated EF 55-60%, and evidence of right heart strain consistent with PE with systolic flattening of the ventricular septum, RV moderately dilated with RV systolic function severely reduced and increased PA peak pressure of 70mmHg. Pt was transferred out of ICU to the medical floor on 07/16 and transferred to the [facility] hospitalist service. Pt evaluated on 07/17 and felt to be stable for discharge. She is eating without difficulty, urinating without difficulty. She complains of some pain in the RLE and requests pain medication at discharge. Pt is to be discharged to on Pradaxa 150mg PO BID for at least 6 months but this will be addressed further with her PCP. Pts UTI will be treated with Nitrofurantoin 500mg po BID which was started on 07/15 and will be completed on 07/20. Pt is to followup with her PCP, Dr. Mario, in 1 week She is to STOP her OCP Pt was given a note for work and will needto followup with her PCP to be cleared for return to work. Pt Condition on Discharge: Stable Discharge Disposition: Discharge Home Discharge Instructions DIET: Follow Instructions for: As Tolerated, No Restrictions Activities you can perform: Weight Bearing as Mary Follow up Referrals: PCP Follow-up - [address] Mario New Medications: Dabigatran (Pradaxa) 150 Mg Cap 150 MG PO BID DVT/PE #62 CAP Nitrofurantoin Monohydrate Macrocrystals (Macrobid) 100 Mg Cap 100 MG PO BIDPC UTI #7 CAP Discontinued Medications: ([ Control ]) 1 TAB PO DAILY Additional Information Patient examined. Assessment and plan formulated with Charlotte Lazo PA-C. I agree with the above. Charlotte Lazo Jul 17, 2016 15:08 Edwardo Lee DO Jul 21, 2016 07:10
[2016-07-17] MEDS ORDERED: HYDR-3288 PO (15:10)
[2016-07-18 03:53] LABS: PHOSPHATIDYLSERINE AB IGA LESS THAN 20.0 U/mL (()); PHOSPHATIDYLSERINE AB IGM LESS THAN 25.0 U/mL (()); THROMBIN TIME FOR LA ND sec (13-19)
[2016-07-18] MEDS ORDERED: PANTOPRAZOLE SOD 40 MG DELAYED RELEASE TAB PO SCH (09:00)
== END 2016-07-17 16:23 | disposition home or self-care (01) | DRG 175 ==
LOC: NEPE 08:02 → NEDA 10:30 → HIME 16:30 → N04A 07-16 21:47
PROVIDERS: ADMIT Internal Medicine Critical Care Medicine; ATTEND Internal Medicine Critical Care Medicine
PROC: 3E0F7GC Introduction of Other Therapeutic Substance into Respiratory Tract, Via Natural or Artificial Opening (ICD-10-PCS; principal; 2016-07-13)
PROC: 05HN33Z Insertion of Infusion Device into Left Internal Jugular Vein, Percutaneous Approach (ICD-10-PCS; 2016-07-13)
PROC: 0T9B70Z Drainage of Bladder with Drainage Device, Via Natural or Artificial Opening (ICD-10-PCS; 2016-07-13)
PROC: 3E03317 Introduction of Other Thrombolytic into Peripheral Vein, Percutaneous Approach (ICD-10-PCS; 2016-07-13)
DX: I26.09 Other pulmonary embolism with acute cor pulmonale (principal); E87.2 Acidosis; I24.8 Other forms of acute ischemic heart disease; E88.81 Metabolic syndrome and other insulin resistance; N39.0 Urinary tract infection, site not specified; I82.403 Acute embolism and thrombosis of unspecified deep veins of lower extremity, bilateral; Z68.43 Body mass index [BMI] 50.0-59.9, adult; E66.01 Morbid (severe) obesity due to excess calories; M25.562 Pain in left knee; R00.0 Tachycardia, unspecified; Z88.2 Allergy status to sulfonamides; R74.8 Abnormal levels of other serum enzymes; Q62.8 Other congenital malformations of ureter; E87.6 Hypokalemia; D72.829 Elevated white blood cell count, unspecified
CPT/HCPCS: 70450; 71010; 71275; 76937; 80048; 80053; 80061; 80076; 81001; 81240; 81241; 81291; 82565; 82948; 83036; 83090; 83605; 83690; 83735; 83880; 84100; 84484; 84702; 85025; 85027; 85240; 85300; 85303; 85306; 85307; 85384; 85598; 85610; 85613; 85730; 86146; 86147; 86148; 87077; 87086; 87186; 87641; 93005; 93306; 93880; 93970; 94150; 96361; 96374; 96375; C9113; J1630; J1644; J2270; J2405; J2550; J2997; J7030; J7040; J7050; Q9967